=== PATIENT | male | born 1990 | race Caucasian/White ===

== ENCOUNTER 2018-05-14 20:05 | Emergency (ER) | payer OTHER ==
[~2018-05-14] VITALS: Ht 188 cm; Wt 88.5 kg
[2018-05-14] MEDS ORDERED: PREVACID 24HR15 MG (20:26)
[2018-05-14] MEDS ORDERED: MUCINEX1200 MG PO (21:21)
[2018-05-14] MEDS ORDERED: FLONASE 0.05%50 MCG NASAL (21:21)
[2018-05-14] MEDS ORDERED: VENTOLIN HFA 1818 GM INH (21:21)
[2018-05-14 21:32] VITALS: BP 128/80
--- NOTE | 2018-05-15 13:05 | EKG ---
[place] [address] ELECTROCARDIOGRAM REPORT Name: OLY ZAMAN Room: [facility].#: [id number] Admission: 05/14/18 Attend Phys: Discharge: 05/14/18 Date of : 88 Report #: [id number] THIS REPORT FOR: //name// [facility] ED Test Date: 2018-05-14 Test Time: 21:00:01 Pat Name: OLY ZAMAN Department: Room: Gender: M Bladder Tier: NICK : 1990 Requested By: Malka Duenas Order Number: [id number] MD: Shimon Diamond Measurements Intervals [place] Rate: 68 P: 65 AR: 134 QRS: 47 QRSD: 95 T: 63 QT: 382 QTc: 407 Interpretive Statements Sinus rhythm Baseline wander in lead(s) V2 Compared to ECG 10/10/2006 09:07:03 Sinus arrhythmia no longer present Early repolarization no longer present Electronically Signed On 05-15-2018 13:05:04 CDT by Shimon Diamond [email or web address] <ELECTRONICALLY SIGNED> By: Shimon Diamond MD, [facility] 05/15/18 1305 2100 2100 Shimon Diamond MD, [facility] /EPI
== END 2018-05-14 21:34 | disposition home or self-care (01) ==
LOC: M.ERS 20:05
DX: R06.00 Dyspnea, unspecified (principal); F41.9 Anxiety disorder, unspecified; J34.89 Other specified disorders of nose and nasal sinuses

== ENCOUNTER 2018-05-28 18:47 | Emergency (ER) | payer OTHER ==
[~2018-05-28] VITALS: Ht 188 cm; Wt 86.2 kg
[~2018-05-28 18:47] MED LIST: FLONASE 0.05%50 MCG NASAL; MUCINEX1200 MG PO; PREVACID 24HR15 MG; VENTOLIN HFA 1818 GM INH
[2018-05-28] MEDS ORDERED: KEFLEX500 M1 PO (19:36)
[2018-05-28 19:48] VITALS: BP 130/70
== END 2018-05-28 19:49 | disposition home or self-care (01) ==
LOC: M.ERS 18:47
DX: S62.601A Fracture of unspecified phalanx of left index finger, initial encounter for closed fracture (principal); W23.0XXA Caught, crushed, jammed, or pinched between moving objects, initial encounter; Y93.89 Activity, other specified; Y92.89 Other specified places as the place of occurrence of the external cause; Y99.8 Other external cause status